=== PATIENT | male | born 1945 | race Caucasian/White ===

== ENCOUNTER → 2021-12-02 12:00 | Outpatient (CLI) | payer MEDICARE, OTHER, SELFPAY ==
--- NOTE | 2021-12-02 | DI.US.S_ITS ---
PROCEDURE: US ABD AORTA ANEURYSM SCREEN INDICATIONS: SCREENING TECHNIQUE: Real time scanning was performed of the aorta and iliac arteries, with image documentation. COMPARISON: None. FINDINGS: Aorta: Proximal aortic diameter measures 1.6 cm. Mid-aorta measures 1.8 cm. Distal aortic diameter is 1.5 cm. Iliac arteries: Right common iliac artery measures 1.4 cm. Left common iliac artery measures 1.3 cm. IMPRESSION: Negative for aneurysm. Dictated by: Abdelrahman Wagoner M.D. on 12/02/2021 at 11:51 Approved by: Abdelrahman Wagoner M.D. on 12/02/2021 at 11:51
== END ==
PROVIDERS: PCP Family Medicine; Referring Provider Family Medicine; Visit Provider Family Medicine
DX: Z13.6 Encounter for screening for cardiovascular disorders (principal)
CPT/HCPCS: 76706

== ENCOUNTER → 2021-12-26 10:45 | Outpatient (CLI) | payer MEDICARE, OTHER, SELFPAY ==
--- NOTE | 2021-12-26 10:51 | DI.CT.S_ITS ---
PROCEDURE: CT CHEST W CON INDICATIONS: Thoracic aortic aneurysm, without rupture TECHNIQUE: After the administration of intravenous contrast, 5 mm thick sections acquired from the pulmonary apices to the posterior costophrenic angles. 1 mm axial lung, 5 mm thick coronal and sagittal reformats and 7 mm axial MIP were acquired. For radiation dose reduction, the following was used: automated exposure control, adjustment of mA and/or kV according to patient size. COMPARISON: Outside Facility, RG, CT AORTA ENDOVASCULAR STUDY, 02/11/2021, 14:17. FINDINGS: Image quality: Excellent. Lungs and pleura: No acute air space opacities. No pleural effusions or pneumothorax. Central and peripheral airways are patent and normal in caliber. Mediastinum: Heart size is normal. No pericardial effusion. No mediastinal or hilar adenopathy by size criteria. Ascending thoracic aorta measures 4.1 by 4.3, similar prior exam. Descending thoracic aorta measures 3.0 x 2.5 cm. Mild atherosclerotic vascular calcification Esophagus is normal in caliber. No hiatal hernia. Bones and chest wall: No suspicious bony lesions. No vertebral body compression fractures. No axillary or supraclavicular adenopathy by size criteria. Thyroid gland unremarkable . Abdomen: Several splenic granulomas noted. Left renal cyst. No hydronephrosis. IMPRESSION: Ascending thoracic aortic ectasia measuring up to 4.3 cm, stable from the prior. Approved by: Sarmad Falcon M.D. on 01/07/2022 at 16:49
== END ==
PROVIDERS: PCP Family Medicine; Referring Provider Family Medicine; Visit Provider Family Medicine
DX: I77.810 Thoracic aortic ectasia (principal); F17.210 Nicotine dependence, cigarettes, uncomplicated
CPT/HCPCS: 71260

== ENCOUNTER → 2023-06-25 11:56 | Outpatient (CLI) | payer MEDICARE, OTHER, SELFPAY ==
--- NOTE | 2023-06-25 | DI.RAD.S_ITS ---
PROCEDURE: XR LUMBAR SPINE 2-3V INDICATIONS: BACK PAIN TECHNIQUE: 3 views of the lumbar spine were acquired. COMPARISON: None. FINDINGS: Bones: 5 [id number] vertebrae are present. Levocurvature of the lumbar spine. Minimal anterolisthesis of L4 on L5. Multilevel disc height loss, worse at L4-5 and L5-S1. Multilevel facet arthropathy, worse at L4-5 and L5-S1. Mild anterior osteophytosis.. No vertebral body compression fractures. No suspicious bony lesions. Soft tissues: Overlying bowel gas pattern is normal. No suspicious soft tissue calcifications. Atherosclerotic vascular calcifications. IMPRESSION: Multilevel degenerative changes of the lumbar spine as described above. Dictated by: Toni Goodson M.D. on 06/25/2023 at 14:15 Approved by: Toni Goodson M.D. on 06/25/2023 at 14:16
== END ==
PROVIDERS: PCP Family Medicine; Referring Provider Family Medicine; Visit Provider Family Medicine
DX: M47.816 Spondylosis without myelopathy or radiculopathy, lumbar region (principal); M47.817 Spondylosis without myelopathy or radiculopathy, lumbosacral region; M54.50 Low back pain, unspecified
CPT/HCPCS: 72100

== ENCOUNTER → 2023-08-13 12:36 | Outpatient (CLI) | payer MEDICARE, OTHER, SELFPAY ==
--- NOTE | 2023-08-13 12:38 | DI.MRI.S_ITS ---
PROCEDURE: MR LUMBAR SPINE WO CON INDICATIONS: Lumbar radiculopathy TECHNIQUE: Noncontrast sagittal T1 spin echo and T2 fast echo, sagittal STIR, axial T1 and T2 fast spin echo through the lumbar spine. Axial and oblique coronal T1 spin echo and STIR through the sacrum. In cases with scoliosis, additional coronal T2 fast spin echo may be performed. COMPARISON: None. FINDINGS: Image quality: Excellent. Alignment and Curvature: There is normal bony alignment. Bone Marrow: Marrow is of normal overall signal. No acute vertebral body compression fractures. No sacral fractures. Spinal Cord: Conus medullaris terminates at the L1 level. Visualized cord demonstrates normal signal and size. Paraspinous Soft Tissues: Left renal cortical simple cyst noted T12-L1: Disc space narrowing. No central or foraminal stenosis. L1-L2: Disc space is preserved. No central or foraminal stenosis L2-L3: Disc space is preserved. No central stenosis. No foraminal stenosis L3-L4: Mild disc space narrowing and circumferential disc bulge results in mild central stenosis. Mild bilateral foraminal stenosis L4-L5: Disc space narrowing and circumferential disc bulge. Mild central stenosis. Mild bilateral foraminal stenosis L5-S1: Disc space narrowing and circumferential disc bulge present. No central stenosis. No foraminal stenosis IMPRESSION: Mild degenerative disc disease and arthropathy without significant stenosis throughout the exam Approved by: Sarmad Falcon M.D. on 08/13/2023 at 15:43
== END ==
PROVIDERS: PCP Family Medicine; Referring Provider Anesthesiology; Visit Provider Anesthesiology
DX: M54.16 Radiculopathy, lumbar region (principal); M51.36 Other intervertebral disc degeneration, lumbar region; M47.816 Spondylosis without myelopathy or radiculopathy, lumbar region
CPT/HCPCS: 72148

== ENCOUNTER 2023-09-22 07:54 | Outpatient (CLI) | payer MEDICARE, OTHER, SELFPAY ==
--- NOTE | 2023-09-22 | DI.RAD.S_ITS ---
PROCEDURE: PAIN L INTERLAMINAR/CAUDAL INJ INDICATIONS: Lumbar radiculopathy COMPARISON: None. FINDINGS: Fluoroscopic spot filming was performed to verify placement of spinal needles at the L3-4 level(s), as labeled on the films. Appropriate location(s) of the needle tip(s) was confirmed by injection of iodinated contrast. IMPRESSION: Intra procedural fluoroscopic images. Dictated by: Delonte Jackson M.D. on 09/22/2023 at 9:59 Approved by: Delonte Jackson M.D. on 09/22/2023 at 10:00
[2023-09-22 07:55] VITALS: BP 136/78; PULSE 63; RESP 20; TEMP 36.4; O2SAT 98
[2023-09-22 08:33] VITALS: BP 134/67; PULSE 59; RESP 16; O2SAT 100
[2023-09-22] MEDS: DEXAMETHASONE 10 MG/ML VIAL INJ (08:33)
[2023-09-22] MEDS: iopamidoL 15 ML VIAL 3 ML INJ (08:33)
[2023-09-22 08:38] VITALS: BP 120/68; PULSE 59; RESP 16; O2SAT 100
[2023-09-22 08:43] VITALS: BP 119/71; PULSE 58; RESP 15; O2SAT 100
[2023-09-22 08:52] VITALS: BP 151/79; PULSE 62; RESP 18; O2SAT 100
--- NOTE | 2023-09-22 12:29 | P.PCN_ITS ---
Date/Time/Diagnoses Date of procedure: 09/22/23 Time of procedure: 08:30 Procedure Notes Physician: Colton Dhaliwal Total Fluoroscopy time (seconds): 21 Total sedation minutes: 0 Procedure in detail & Post-procedure care: L3-4 Interlaminar Epidural Steroid Injection Indications: Noé is presenting for treatment of lumbar radiculopathy with low back and leg pain. Preoperative diagnosis: Lumbar radiculopathy Postoperative diagnosis: Same Focused Examination: Ax3 Mood and affect are normal Vital Signs: VSS Consent: Following review of allergies and potential side effects/complications, including, but not necessarily limited to, infection, allergic reaction, local tissue breakdown, stroke, temporary or permanent nerve injury, paralysis, and possible , the patient indicated that they understood and agreed to proceed.? An informed consent document was signed by the patient, witnessed by a nurse and placed in the patient's chart.? Additionally, other treatment options including medications and physical therapy were reviewed with the patient. All questions were answered. Site was then marked. Anesthesia: Local Position: Prone Monitoring: NIBP, Pulse oximetry, 3 lead EKG Needle used: 18 G 3.5? Tuohy Contrast: Isovue 300M Injectate: Dexamethasone 10 mg with 1% lidocaine 2 mL Technique: The skin was prepped with chloraprep and then draped in a sterile fashion. Time out was performed as per protocol. Oxygen applied via NC. Skin and subcutaneous structures of the needle entry site was then infiltrated with 3 mL of lidocaine 1%. Under AP, lateral and contralateral oblique fluoroscopic control, the Tuohy needle was guided into the L3-4 epidural space. The space was accessed with loss of resistance technique. Isovue 300M was then injected and the spread was consistent with the epidural space. There was no evidence for intravascular or intrathecal uptake. After negative aspiration, the above- mentioned injectate was then slowly administered and the needle withdrawn. The patient expressed no unusual discomfort or paresthesias during the injection. Band-Aids applied to injection sites. EBL: less than 1 ml Complications: None Post Procedure: Patient was taken to the recovery and monitored. The patient was provided a Pain Log to continue to record the patient's response to the target- specific procedure prior to the patient's follow-up visit with the referring physician. Patient was stable upon discharge. Detailed post procedure instructions were provided. Patient was asked to call in the event of worsening pain, fever, weakness, numbness or bladder or bowel incontinence.
== END 2023-09-22 09:00 | disposition home or self-care (01) ==
PROVIDERS: PCP Family Medicine; Referring Provider Anesthesiology; Visit Provider Anesthesiology
DX: M54.16 Radiculopathy, lumbar region (principal)
CPT/HCPCS: 62323; J1100

== ENCOUNTER → 2024-01-08 11:34 | Outpatient (CLI) | payer MEDICARE, OTHER, SELFPAY ==
--- NOTE | 2024-01-08 | DI.CT.S_ITS ---
PROCEDURE: CT CHEST WO CON INDICATIONS: Thoracic aortic aneurysm, without rupture, unspeci TECHNIQUE: Noncontrast 5 mm thick sections acquired from the pulmonary apices to the posterior costophrenic angles. 1 mm lung window, 5 mm thick coronal and sagittal and 7 mm axial MIP reformats were then acquired. For radiation dose reduction, the following was used: automated exposure control, adjustment of mA and/or kV according to patient size. COMPARISON: Outside Facility, [facility], CT THORAX W/O CONTRAST, 02/11/2021, 14:17. FINDINGS: Image quality: Diagnostic. Lower Neck: No enlarged lymph nodes. Thyroid: No thyroid nodules which require sonographic follow up, per consensus guidelines. Axillae: No enlarged lymph nodes. Chest Wall: Unremarkable. Bones: No acute fracture. No aggressive appearing lytic or blastic osseous lesion. Thoracic kyphosis. Mild to moderate multilevel degenerative changes of the spine. Lungs and Pleura: No pneumothorax or pleural effusions. Compared to CT chest dated February 11, 2021, no new or enlarging solid pulmonary nodule or consolidation. Stable middle lobe subpleural solid pulmonary nodule measuring 4 mm (3/170). Left upper lobe subcentimeter calcified granuloma. Dependent atelectasis. Right lower lobe linear atelectasis/scar. Patent central airways. Heart: Heart size is normal. No pericardial effusion. Mild to moderate three-vessel coronary calcification. Thoracic Vessels: Pulmonary artery is normal in caliber. Ascending thoracic aorta is ectatic and stable measuring 4.3 x 4.3 cm (2/35), previously 4.4 x 4.3 cm (6/336). Mild calcification of the thoracic aorta Mediastinum and Ailyn: No enlarged lymph nodes. Esophagus: No wall thickening. No hiatal hernia. Upper Abdomen: Visualized upper abdomen solid organs and bowel loops appear normal. Mild calcification of the abdominal aorta. Left upper pole renal simple cyst. No additional follow-up needed. Subcentimeter calcified granulomas in the spleen suggestive of prior granulomatous infection. IMPRESSION: 1. Ascending thoracic aorta is ectatic and stable in size measuring 4.3 x 4.3 cm, previously 4.4 x 4.[address] dated February 11, 2021. 2. No new or enlarging solid pulmonary nodules. Stable middle lobe subpleural solid pulmonary nodule measuring 4 mm, benign. 3. Mild to moderate three-vessel coronary calcification. 4. Sequela of prior granulomatous infection. Dictated by: Aline Garcia M.D. on 01/08/2024 at 16:34 Approved by: Aline Garcia M.D. on 01/08/2024 at 16:41
== END ==
PROVIDERS: PCP Family Medicine; Referring Provider Registered Nurse; Visit Provider Registered Nurse
DX: I71.20 Thoracic aortic aneurysm, without rupture, unspecified (principal); I25.10 Atherosclerotic heart disease of native coronary artery without angina pectoris; M47.814 Spondylosis without myelopathy or radiculopathy, thoracic region; M40.204 Unspecified kyphosis, thoracic region
CPT/HCPCS: 71250

== ENCOUNTER → 2024-04-14 11:58 | Outpatient (ROUT) | payer MEDICARE, OTHER, SELFPAY ==
[2024-04-14 12:03] LABS: Add Manual Diff / Slide Review NO; Basophils Absolute Auto 0 /uL (0-100); Basophils Percent Auto 0.4 % (0-2); Eosinophils Absolute Auto 100 /uL (0-450); Eosinophils Percent Auto 0.8 % (2-4); Hematocrit 43.7 % (41-53); Hemoglobin 14.7 g/dL (13.5-17.5); Lymphocytes Absolute Auto 1800 /uL (1100-4500); Lymphocytes Percent Auto 17.2 % (25-40); Mean Corpuscular HGB Conc 33.7 % (30-36); Mean Corpuscular Volume 94.9 fL (80-100); Monocytes Absolute Auto 1400 /uL (0-900); Neutrophils Absolute Auto 7300 /uL (1500-7000); Neutrophils Percent Auto 68.6 % (50-75); Platelet Count 229 X10^3/uL (150-400); Red Blood Cell Count 4.61 X10^6/uL (4.5-5.9); Red Cell Distribution Width 15.1 % (11.6-14.8); White Blood Cell Count 10.6 X10^3/uL (4.5-11.0)
[2024-04-14 12:19] LABS: Alanine Aminotransferase 19 IU/L (<50); Albumin 4.4 g/dL (3.5-5.0); Albumin Globulin Ratio 1.5 (1.0-2.8); Alkaline Phosphatase 58 U/L (38-126); Aspartate Aminotransferase 28 IU/L (17-59); BUN Creatinine Ratio 18.8 (6-22); Bilirubin Total 1.1 mg/dL (0.2-1.3); Blood Urea Nitrogen 19 mg/dL (9-20); C-Reactive Protein Quant < 0.5 mg/dL (<1.0); Carbon Dioxide 25 mmol/L (22-32); Chloride 108 mmol/L (98-107); Estimated Glomerular Filt Rate > 60 mL/min (>60); Glucose 88 mg/dL (80-110); HEMOLYSIS < 15 (0-50); Potassium 4.2 mmol/L (3.4-5.1); Sodium 140 mmol/L (137-145); Total Protein 7.4 g/dL (6.3-8.2)
== END ==
PROVIDERS: PCP Family Medicine; Visit Provider Registered Nurse
DX: N13.30 Unspecified hydronephrosis (principal); R31.0 Gross hematuria; R35.0 Frequency of micturition
CPT/HCPCS: 80053; 85025; 86140

== ENCOUNTER → 2024-04-14 | Outpatient (CLI) | payer MEDICARE, OTHER, SELFPAY ==
--- NOTE | 2024-04-14 11:58 | DI.CT.S_ITS ---
PROCEDURE: CT IVP A/P W/WO INDICATIONS: URINE FREQ/GROSS HEMATURIA/HYDRONEPHROSIS TECHNIQUE: Optional 5 mm thick noncontrast images acquired from the diaphragm to the symphysis pubis. After the administration of intravenous contrast, 5 mm thick images acquired from the diaphragm to the symphysis pubis after a 10-minute delay. 2 mm thick coronal and sagittal reformats were then performed of the kidneys and ureters. For radiation dose reduction, the following was used: automated exposure control, adjustment of mA and/or kV according to patient size. COMPARISON: [facility], CT, CT ANGIO CHEST, 03/21/2024, 18:21. FINDINGS: Image quality: Diagnostic. Kidneys and Ureters: Both kidneys are normal in size, without hydronephrosis or nephrolithiasis. There is a finding of bilateral extrarenal pelvis, greater on the right than the left. No perinephric fat stranding. There is normal bilateral renal enhancement. Renal calyces appear normal in morphology when filled with contrast. Opacified portions of both ureters demonstrate normal caliber Bladder: Bladder wall thickness is mildly abnormal measuring up to 9 mm thickness concentrically, with an appearance most consistent with cystitis. No discrete bladder mass is identified. No calcified bladder stones. OTHER: Lower chest: Unremarkable. Liver: No solid mass. Scattered punctate calcified granulomas. Gallbladder: No radiopaque gallstones or wall thickening. Biliary ducts: No biliary dilation. Pancreas: No ductal dilation. Spleen: Size is within normal limits. Moderate scattered punctate calcified granulomas. Adrenal Glands: No adrenal nodules. Stomach and Bowel: Normal colonic caliber, without significant wall thickening. Peritoneum: No abnormal intraperitoneal fluid. No free air. Ventral Wall: No hernia. Abdominal Nodes: No retroperitoneal or mesenteric adenopathy by size criteria. Vessels: Aorta and inferior vena cava are normal in size. PELVIS: Pelvic Organs: Unremarkable. Pelvic Nodes: No enlarged lymph nodes. Miscellaneous: No inguinal hernias are seen. Bones: No aggressive osseous abnormality. IMPRESSION: No nephrolithiasis or filling defects within the opacified renal collecting system or ureters. Note is made of extrarenal pelvis bilaterally more prominent on right than left and also mild to moderate concentric bladder wall thickening consistent with cystitis. A discrete renal cortical or urothelial mass is not found. Dictated by: Eliecer Armstrong M.D. on 04/14/2024 at 13:50 Approved by: Eliecer Armstrong M.D. on 04/14/2024 at 13:57
== END ==
PROVIDERS: PCP Family Medicine; Referring Provider Registered Nurse; Visit Provider Registered Nurse
DX: N13.30 Unspecified hydronephrosis (principal); R35.0 Frequency of micturition; R31.0 Gross hematuria
CPT/HCPCS: 74178; 80053; 85025; 86140; Q9967

== ENCOUNTER 2024-11-23 14:52 | Outpatient (CLI) | payer OTHER, SELFPAY ==
[2024-11-23] VITALS (7 sets, daily range): BP systolic 134–185; BP diastolic 71–90; PULSE 60–80; RESP 14–18; TEMP 36.6; O2SAT 97–100
--- NOTE | 2024-11-23 14:53 | DI.RAD.S_ITS ---
PROCEDURE: PAIN L/S TRANSFORAM INJECT KENDALL COMPARISON: None. INDICATIONS: BILATERAL L4, L5 AND S1 MBB-LA FINDINGS: Intra procedural examination demonstrating appropriate positions of the needles in the bilateral L4, L5 and S1 positions. IMPRESSION: Intra procedural examination demonstrating appropriate positions of the needles. Dictated by: Toni Goodson M.D. on 11/24/2024 at 9:43 Approved by: Toni Goodson M.D. on 11/24/2024 at 9:47
[2024-11-23] MEDS: iopamidoL 15 ML VIAL 3 ML INJ (16:16)
[2024-11-23] MEDS: BUPIVACAINE 0.5% (PF) 10 ML VIAL 5 ML INJ (16:17)
[2024-11-23] MEDS: LIDOCAINE 1% 20 ML 5 ML INJ (16:17)
--- NOTE | 2024-11-23 17:05 | PM.PROC.IR.1 ---
Date/Time/Diagnoses Date of procedure: 11/23/24 Time of procedure: 17:06 Pre-procedure diagnosis: 1. FACET ARTHROPATHY Post-procedure diagnosis: same Procedure Notes Procedure: 1. BILATERAL- L4, L5 and S1 DIAGNOSTIC MB BLOCKS with LA Anesthetic Indications: Russel is referred by Dr. Recio for treatment of Bilateral Axial LBP. Physician: Louie Rodrigues Total Fluoroscopy time (seconds): 12 Total sedation minutes: 0 Complications: none Procedure in detail & Post-procedure care: DESCRIPTION OF PROCEDURE Fluoroscopically guided, contrast-controlled bilateral L4, L5 and S1 medial branch blocks with 0.5cc of 0.5% Marcaine. Following review of allergy and review of potential side effects and complications, including, but not necessarily limited to, infection, allergic reaction, local tissue breakdown, nerve injury, paralysis, stroke and possible , the patient indicated that the patient understood and agreed to proceed. An informed consent document was signed by the patient, witnessed by a nurse, and placed in the patient's chart. After review of previous anaesthesic history and IV conscious sedation the patient was deemed safe to proceed with today's procedure with IV conscious sedation as ASA class II designation. Safety time-out was performed to confirm patient ID, procedure to be performed and site of procedure. IV sedation was not administered by the RN after DO order, titrated to patient comfort during the course of the procedure while the patient remained responsive to all verbal commands In the prone position, following sterile prep and drape of the lumbar region, the right L4, L5 and S1 anatomical location of the medial branch of the dorsal ramus was identified fluoroscopically. Subsequently an anesthetic skin wheal using 1% lidocaine solution was initiated at each of the anatomical spots. Subsequently then a 22-gauge 3.5-inch spinal needle was atraumatically introduced and advanced under fluoroscopic guidance at each of the corresponding sites at the right L4, L5 and S1 MB. After negative aspiration, 0.2cc of Isovue 200 was injected, confirming placement without vascular or intrathecal uptake. Subsequently then 0.5cc of 0.5% Marcaine solution was injected at each of the corresponding sites at the right L4, L5 and S1 medial branch locations. The identical procedure was replicated on the left. The patient tolerated the procedure well without signs or symptoms of complications prior to transfer to the recovery area continued monitoring without incident. Post-procedure, the patient was monitored initiating provocative activities to measure the amount of relief from block of the facetogenic pain. The patient reported a VAS of 7 prior to the procedure and a post-procedure VAS of 1. It has been a pleasure to assist in the diagnostic and therapeutic care of your patient. POST OP INSTRUCTIONS The patient was provided with a Pain Log to complete over the next several hours and subsequent days prior to the patient's follow up with the ordering physician. If the patient has refurbish technician relief to the solution applied, then they may be a candidate for medial branch rhizotomy. The patient is aware, was provided, once again, with a Pain Log and will follow up with the referring physician for review and clinical correlation
== END 2024-11-23 16:45 | disposition home or self-care (01) ==
LOC: RAD 14:52
PROVIDERS: PCP Family Medicine; Referring Provider Physical Medicine & Rehabilitation; Visit Provider Physical Medicine & Rehabilitation
DX: M47.816 Spondylosis without myelopathy or radiculopathy, lumbar region (principal); M47.817 Spondylosis without myelopathy or radiculopathy, lumbosacral region
CPT/HCPCS: 64483; 64484; 64493; 64494

== ENCOUNTER → 2025-01-02 14:08 | Outpatient (CLI) | payer MEDICARE, OTHER, SELFPAY ==
--- NOTE | 2025-01-02 14:09 | DI.RAD.S_ITS ---
PROCEDURE: XR ANKLE LT MIN 3V INDICATIONS: Ankle injury pain TECHNIQUE: 3 views of the ankle were acquired. COMPARISON: None. FINDINGS: Bones: No fractures or dislocations. Ankle mortise is normally aligned. No suspicious bony lesions. Soft tissues: No tibiotalar joint effusion. Achilles tendon appears normal. Atherosclerotic vascular calcifications are noted. IMPRESSION: No acute bony abnormality or significant effusion. Dictated by: Ra Nova M.D. on 01/02/2025 at 17:18 Approved by: Ra Nova M.D. on 01/02/2025 at 17:20
== END ==
LOC: RAD 14:09
PROVIDERS: PCP Family Medicine; Referring Provider Family Medicine; Visit Provider Family Medicine
DX: M25.572 Pain in left ankle and joints of left foot (principal)
CPT/HCPCS: 73610

== ENCOUNTER 2025-03-08 10:38 | Outpatient (CLI) | payer OTHER, SELFPAY ==
[2025-03-08] VITALS (11 sets, daily range): BP systolic 119–157; BP diastolic 63–90; PULSE 56–64; RESP 13–16; TEMP 36.5; O2SAT 93–100
[2025-03-08] MEDS: MIDAZOLAM 2 MG/2 ML VIAL IV (11:52)
[2025-03-08] MEDS: LIDOCAINE 1% 20 ML 5 ML INJ (11:56)
[2025-03-08] MEDS: BUPIVACAINE 0.5% (PF) 10 ML VIAL 5 ML INJ (11:56)
--- NOTE | 2025-03-08 12:21 | P.PCN_ITS ---
Date/Time/Diagnoses Date of procedure: 03/08/25 Time of procedure: 12:21 Pre-procedure diagnosis: 1. RECALCITRANT FACET ARTHROPATHY Post-procedure diagnosis: same Procedure Notes Procedure: 1. RIGHT L4 AND L5 MEDIAL BRANCH RADIOFREQUENCY NEUROTOMY AND RIGHT S1 DORSAL RAMUS BRANCH RADIOFREQUENCY NEUROTOMY Indications: Russel is referred by Dr. Recio for treatment of facet arthropathy. Physician: Louie Rodrigues Total Fluoroscopy time (seconds): 9 Total sedation minutes: 22 Complications: none Procedure in detail & Post-procedure care: DESCRIPTION OF PROCEDURE Right L4 and L5 medial branch radiofrequency neurotomy and right S1 dorsal ramus branch radiofrequency neurotomy under fluoroscopy with conscious sedation. The patient is well known to this clinic having undergone previous facet injections with good but temporary relief. The patient has experienced appropriate, concordant relief with previous facet and median branch blocks but the patient's pain has been recalcitrant to further conservative measures. Therefore, based upon the patient's relief and persistent symptoms, the patient is considered an appropriate candidate for facet rhizotomy. All of the patient's questions regarding the risks versus benefits of the procedure, including, but not limited to, bleeding, infection, temporary as well as lasting nerve injury, paralysis, stroke, and , as well treatment alternatives were answered to satisfaction. After review of previous anaesthesic history and IV conscious sedation the patient was deemed safe to proceed with today?s procedure with IV conscious sedation as ASA class II designation. Safety time-out was performed to confirm patient ID, procedure to be performed and site of procedure. IV sedation was accomplished with a combination of 2mg of Versed was administered by the RN after DO order, titrated to patient comfort during the course of the procedure while the patient remained responsive to all verbal commands. After obtaining informed consent, denial of pertinent drug allergies, as well as being made aware of the potential risks of bleeding, infection, spinal cord trauma, paralysis, temporary and permanent nerve damage, seizure, stroke, and possible , the patient was brought to the fluoroscopy suite and positioned prone on the fluoroscopy table. The lumbar region was prepped with Betadine and covered with a fenestrated drape in the usual sterile fashion. Appropriate monitors applied including pulse oximeter, pulse, and blood pressure for regular monitoring throughout the procedure. After local infiltration using 1% lidocaine, under fluoroscopic guidance, a 10- cm RF insulated needle with a 10-mm active tip was positioned parallel to the junction of the right sacral ala and the superior articulating process where the S1 dorsal ramus resides. Needle placement was confirmed with sensory stimulation at 50 Hz, with motor stimulation of .5v on the right which produced local stimulation without radicular component. The stimulation was then increased to 2v with, once again, only local multifidus stimulation without radicular component. This was then followed by two discreet lesions performed at 80 degrees Celsius for 90 seconds each. The needle was then removed and the identical procedure was performed along the length of the right L5 medial branch with motor stimulation at .7v on the right. The identical procedure was once again performed along the length of the right L4 medial branch with motor stimulation of .5v on the right. The patient tolerated the procedure well without signs or symptoms of complications prior to transfer to the recovery area continued monitoring without incident. The patient was then transferred to the recovery area where they were observed for an appropriate period of time after the injection. The patient was then transferred to the recovery area where they were observed for an appropriate period of time after the injection. The patient reported a VAS score of 8 prior to the procedure and a post- procedure VAS of 0. POST OP INSTRUCTIONS The patient was provided a Pain Log to continue to record the patient's response to the target-specific procedure prior to the patient's follow-up visit with the referring physician. Additionally, specific post-injection care instructions and a contact number to our office were provided if concerns arise regarding possible complications associated with the procedure are suspected.
== END 2025-03-08 12:55 | disposition home or self-care (01) ==
LOC: RAD 10:39
PROVIDERS: PCP Family Medicine; Referring Provider Physical Medicine & Rehabilitation; Visit Provider Physical Medicine & Rehabilitation
DX: M47.816 Spondylosis without myelopathy or radiculopathy, lumbar region (principal); M47.817 Spondylosis without myelopathy or radiculopathy, lumbosacral region
CPT/HCPCS: 64635; 64636; 99152; 99153; J2250

== ENCOUNTER → 2025-03-16 16:26 | Outpatient (CLI) | payer MEDICARE, OTHER, SELFPAY ==
--- NOTE | 2025-03-16 | DI.MRI.S_ITS ---
PROCEDURE: MR ANKLE LT WO CON INDICATIONS: Left ankle pain TECHNIQUE: Noncontrast sagittal T1 spin echo and T2 fast spin echo with fat saturation, axial proton density fast spin echo and T2 fast spin echo with fat saturation, coronal T1 spin echo and T2 fast spin echo with fat saturation through the ankle/hindfoot. COMPARISON: [facility], [place], XR ANKLE LT MIN 3V, 01/02/2025, 14:09. FINDINGS: Image quality: Excellent Tendons: Mild tenosynovitis of the posterior tibialis. Moderate tendinosis of the posterior tibialis, with focal near full-thickness tear at the level of the anterior calcaneus (9:6). Mild tenosynovitis of the flexor digitorum longus. The flexor hallucis longus is unremarkable. The extensor tendons are unremarkable. Mild tenosynovitis of the peroneal tendons. No tear of the peroneal tendons. Mild tendinosis of the distal Achilles tendon, without tear. Ligaments: The anterior and the posterior tibial fibular ligaments are intact. Low-grade tear of the anterior talofibular ligament. The posterior talofibular ligament is intact. Sprain of the calcaneofibular ligament. Mild sprain of the deep portion of the deltoid ligament. 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 Moderate amount of fluid within the Gruberi bursa. Marked subchondral marrow edema with subchondral cystic changes about the sinus tarsi, at the calcaneus and the talus, degenerative. Plantar fascia: Thickening of the central cord, representing plantar fasciitis. Muscle: Normal in signal Bones: Please see above. 9 mm subchondral marrow edema in the medial talus dome, representing grade 1 osteochondral lesion. No acute fracture. Small ganglion cyst extending dorsally from the talonavicular articulation. Additional mild degenerative changes of the 2nd tarsometatarsal joint. Small tibiotalar effusion. Small amount of effusion within the posterior subtalar recess with small intra-articular body. Diffuse subcutaneous edema of the ankle. IMPRESSION: 1. Near full-thickness tear of the posterior tibialis tendon at the level of the anterior calcaneus. 2. Low-grade tear of the anterior talofibular ligament. Additional sprain of the medial and lateral ankle ligament. 3. 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 4. Plantar fasciitis. 5. 9 mm grade 1 osteochondral lesion in the medial talus dome. Dictated by: Loli Olivo M.D. on 03/19/2025 at 9:50 Approved by: Loli Olivo M.D. on 03/19/2025 at 10:02
== END ==
PROVIDERS: PCP Family Medicine; Referring Provider Podiatrist; Visit Provider Podiatrist
DX: S96.812A Strain of other specified muscles and tendons at ankle and foot level, left foot, initial encounter (principal); S93.492A Sprain of other ligament of left ankle, initial encounter; M25.572 Pain in left ankle and joints of left foot; M72.2 Plantar fascial fibromatosis; X58.XXXA Exposure to other specified factors, initial encounter
CPT/HCPCS: 73721